=== PATIENT | female | born 1980 | race Caucasian/White ===

== ENCOUNTER 2021-06-24 07:06 | Inpatient (IN) | payer OTHER ==
[2021-06-24 08:07] LABS: HCT 35.9 % (37.0-47.0); HGB 12.1 g/dl (12.5-16.0); MCH 30.3 pg (25.0-31.0); MCHC 33.7 g/dL (32.0-36.0); MPV 10.3 fL (6.0-9.5); RBC 3.99 M/uL (4.20-5.40); RDW 13.5 % (11.5-14.0); WBC 15.4 K/uL (4.0-10.5)
[2021-06-24 09:59] LABS: BILIRUBIN NEGATIVE (NEGATIVE); BLOOD NEGATIVE Ery/uL (NEGATIVE); CLARITY CLEAR (CLEAR); COLOR YELLOW (YELLOW); GLUCOSE (U) NORMAL (NORMAL); LEUKOCYTES NEGATIVE Leu/uL (NEGATIVE); NITRITE NEGATIVE (NEGATIVE); PROTEIN NEGATIVE (NEGATIVE); SPECIFIC GRAVITY <=1.005 (1.001-1.030); UROBILINOGEN 0.2 mg/dL (0.2-1.0); pH 6.5 (5.0-9.0)
[2021-06-24 10:04] LABS: AMPHETAMINES NEGATIVE (NEGATIVE); BARBITURATES NEGATIVE (NEGATIVE); ECSTASY (MDMA) NEGATIVE (NEGATIVE); MARIJUANA (THC) NEGATIVE (NEGATIVE); METHADONE NEGATIVE (NEGATIVE); OPIATES NEGATIVE (NEGATIVE); OXYCODONE NEGATIVE (NEGATIVE)
[2021-06-25 07:48] LABS: HCT 26.1 % (37.0-47.0); HGB 8.9 g/dl (12.5-16.0); MCHC 34.1 g/dL (32.0-36.0); MCV 90.9 fL (78.0-100.0); MPV 9.8 fL (6.0-9.5); RBC 2.87 M/uL (4.20-5.40); RDW 13.6 % (11.5-14.0); WBC 15.1 K/uL (4.0-10.5)
[2021-06-27] MEDS ORDERED: FEOSOL325 MG PO (14:02)
== END 2021-06-27 19:20 | disposition home or self-care (01) | DRG 787 ==
LOC: FIS 07:06 → FOB 07:06 → FIS 10:40 → FOB 10:41
PROVIDERS: Obstetrics & Gynecology
PROC: 10D00Z1 Extraction of Products of Conception, Low, Open Approach (ICD-10-PCS; principal; 2021-06-24 09:30)
DX: O36.5930 Maternal care for other known or suspected poor fetal growth, third trimester, not applicable or unspecified (principal); D62 Acute posthemorrhagic anemia; O34.211 Maternal care for low transverse scar from previous cesarean delivery; O90.81 Anemia of the puerperium; Z20.822 Contact with and (suspected) exposure to COVID-19; O99.334 Smoking (tobacco) complicating childbirth; F17.210 Nicotine dependence, cigarettes, uncomplicated; O99.314 Alcohol use complicating childbirth; Z37.0 Single live birth; Z3A.37 37 weeks gestation of pregnancy; Z86.19 Personal history of other infectious and parasitic diseases
CPT/HCPCS: 36415; 80305; 81003; 86850; 86900; 86901; J0690; J1885; J2250; J2274; J2370; J2405; J3010; J7120